=== PATIENT | female | born 1990 | race Caucasian/White ===

== ENCOUNTER 2017-12-27 18:13 | Emergency (ER) | payer OTHER ==
[~2017-12-27] VITALS: Ht 162.6 cm; Wt 67.0 kg
[2017-12-27 18:18] VITALS: TEMP 36.5; Ht 162.6 cm; Wt 67.0 kg
[2017-12-27] MEDS ORDERED: DEXAMETHASONE **PF** INJ 10 MG/ML VIAL IM STA (18:50)
--- NOTE | 2017-12-27 19:36 | DIAGNOSTIC IMAGING REPORT ---
L-SPINE MIN 4 VIEWS ROUTINE HISTORY: Pain low back pain COMPARISON: 10/29/2013 FINDINGS: There is no fracture. No subluxation. Disc spaces are preserved. IMPRESSION: No fracture or subluxation within the lumbar spine. Normal study The above report was generated using voice recognition software. It may contain grammatical, syntax or spelling errors. Electronically signed by: Alejandro Trejo M.D. 12/27/2017 7:35 PM Dictated Date/Time: 12/27/2017 7:35 PM
--- NOTE | 2017-12-27 19:42 | EMERGENCY ROOM VISIT NOTE ---
ED Visit Note First contact with patient: 18:30 CHIEF COMPLAINT: Low back pain HISTORY OF PRESENT ILLNESS: This 27-year-old female patient presents to the emergency department, ambulatory, complaining of pain in the low back which began approximately 3 days ago. Patient states she was lifting heavy boxes, and later that evening began experiencing severe back pain. She states she is having difficulty sitting down, and is most comfortable while leaning over. She is having difficulty walking due to the pain. She did see her PCP today and was given 30 mg Toradol IM and had a negative urinalysis performed. She did have blood in her urine, however states this is the first day of her menstrual cycle. She was sent here by her PCP due to no response to Toradol for possible imaging and further workup. The pain was gradual in onset, is now constant and worse with movement. The patient notes the pain as sharp and a 7/ 10. The patient has taken ibuprofen without relief of the pain. The patient denies any loss of control of their bowel or bladder functions. There has been no leg numbness or weakness, and no change in sensation. No nausea or vomiting or abdominal pain. No chest pain or shortness of breath. The patient has not had prior back injuries. No dysuria or increased urinary frequency. REVIEW OF SYSTEMS: A 10 system review of systems was performed with positives and pertinent negatives listed in the history of present illness. All other systems were reviewed and are negative. ALLERGIES: Citalopram, pineapple MEDICATIONS: None PMH: None SOCIAL HISTORY: The patient lives locally with family. She denies drug, alcohol use. She admits to smoking cigarettes. PHYSICAL EXAM: VITALS: Vitals are noted on the nurse's note and reviewed by myself. Vital signs stable. GENERAL: This is a 27-year-old white female, in no acute distress, nondiaphoretic, well-developed well-nourished. SKIN: The skin was without rashes, erythema, edema, or bruising. Capillary refill less than 2 seconds. NECK: Supple without nuchal rigidity. No cervical spine tenderness. No paraspinous muscle tenderness. HEART: Regular rate and rhythm without murmurs gallops or rubs. LUNGS: Clear to auscultation bilaterally without wheezes, rales or rhonchi. ABDOMEN: Positive bowel sounds x 4. Normal tympanic percussion. Soft, nontender, without masses or organomegaly. Pa sign negative. MUSCULOSKELETAL: No muscle atrophy, erythema, or edema noted of the back. There is mild tenderness over the lumbar spinous processes. There is severe tenderness over the paraspinous muscles, L>R. There is no tenderness over the thoracic spine or paraspinous muscles. There are no muscle spasms present. The patient is slow to move around with maximum tenderness with lying from a standing position. Positive straight leg raise test. NEURO: Patient was alert and oriented to person place and time. Normal sensation to light and sharp touch. Deep tendon reflexes 2+ in the lower extremities. Dorsalis pedis pulse 2+ bilaterally. Strength 5/5 and equal in the bilateral lower extremities. RADIOLOGY: L-SPINE MIN 4 VIEWS ROUTINE HISTORY: Pain low back pain COMPARISON: 10/29/2013 FINDINGS: There is no fracture. No subluxation. Disc spaces are preserved. IMPRESSION: No fracture or subluxation within the lumbar spine. Normal study The above report was generated using voice recognition software. It may contain grammatical, syntax or spelling errors. Electronically signed by: Alejandro Trejo M.D. 12/27/2017 7:35 PM Dictated Date/Time: 12/27/2017 7:35 PM EMERGENCY DEPARTMENT COURSE: The patient was seen and evaluated as above. She was given 10 mg Decadron IM. Medical records from the PCPs office were reviewed and showed a negative urinalysis area the patient has been given 30 mg Toradol prior to arrival. The patient did wait approximately 2 hours after leaving the primary care provider to come to the emergency department. X-ray of the lumbar spine was performed and reviewed by myself and radiologist as above. The patient was reassessed and I discussed the findings of the testing with the patient at bedside. She is now resting more comfortably in bed, and states her pain has slightly improved. I did discuss options for pain management, and recommended steroids and muscle relaxers. The patient was agreeable. I did offer narcotic medication, and the patient declines at this time. She was encouraged to follow-up closely with her PCP. She was given a home pack for Flexeril. Prescriptions for Flexeril and Medrol Dosepak were sent. Discharge instructions reviewed, the patient was discharged home in good condition. I attest that I have personally reviewed the patient's current medication list. Patient was found to have normal blood pressure on screening and does not require follow-up. Etiologies such as lumbago, sciatica, cauda equina, epidural abscess, osteomyelitis, fracture, aortic disease, metastatic disease, infection, renal colic, gastrointestinal, as well as others were entertained. DIAGNOSIS: Lumbar strain with radiculopathy The chart was completed utilizing [employer] Speech voice recognition software. Grammatical errors, random word insertions, pronoun errors, and incomplete sentences are an occasional consequence of this system due to software limitations, ambient noise, and hardware issues. Any formal questions or concerns about the content, text, or information contained within the body of this dictation should be directly addressed to the provider for clarification. Problem List Medical Problems: (1) Anorexia nervosa Status: Chronic (2) Anxiety disorder Status: Chronic (3) Bulimia nervosa Status: Chronic (4) mood disorder NOS Status: Resolved (5) Pneumomediastinum Status: Chronic (6) S/P lumbar puncture Status: Resolved Current/Historical Medications Scheduled Methylprednisolone (Medrol Dosepak), 0 PO DAILY Scheduled PRN Cyclobenzaprine Hcl (Flexeril), 5-10 MG PO TID PRN for Muscle Spasms Ibuprofen (Advil), 400 MG PO Q6 PRN for Pain Allergies Coded Allergies: Pineapple (Verified Allergy, Unknown, SWELLING OF THROAT,HIVES, 05/29/16) Citalopram (Verified Adverse Reaction, Unknown, Mental Issues., 05/29/16) Reported by PT/[facility] record. Vital Signs Date Time Temp Pulse Resp B/P (MAP) Pulse Ox O2 Delivery O2 Flow Rate FiO2 12/27/17 19:58 74 18 122/71 97 12/27/17 18:18 36.5 65 20 128/70 96 Room Air Medications Administered Medications (Trade) Dose Ordered Sig/Lily Route Start Time Stop Time Status Last Admin Dose Admin Dexamethasone Sodium Phosphate (Dexamethasone Inj Pf) 10 mg NOW STAT IM 12/27/17 18:50 12/27/17 18:51 DC 12/27/17 18:55 10 MG Cyclobenzaprine HCl (FLEXERIL 10MG Home Pack) 1 homepack UD STAT PO 12/27/17 19:49 12/27/17 19:50 DC 12/27/17 19:56 1 HOMEPACK Departure Information Impression Primary Impression: Strain of lumbar region Additional Impression: Lumbar radicular pain Dispostion Home / Self-Care Condition GOOD Prescriptions Cyclobenzaprine Hcl (FLEXERIL) 5 Mg Tab 5-10 MG PO TID Y for Muscle Spasms, #15 TAB PRN Prov: Eve Sky PA-C 12/27/17 Methylprednisolone (MEDROL DOSEPAK) 4 Mg Jose 0 PO DAILY, #1 PKT Prov: Eve Sky PA-C 12/27/17 Referrals aMddi Engel CRNP (PCP) Patient Instructions ED Low Back Pain Injury, My [facility] Additional Instructions You have been treated in the Emergency Department for Back Pain. You have been prescribed Flexeril (cyclobenzaprine) 1-2 tabs orally, three times per day. Do NOT exceed 30 mg (6 tabs) per day. Take your first dose at bedtime as it can make you drowsy. Always take all medications as prescribed. You have been prescribed a Medrol Dosepak. This is a steroid which will help decrease your inflammation, redness, and itch. Take the medicine as prescribed. Take the ENTIRE 6 day course of the steroids. No NSAIDs (ibuprofen, Advil, Motrin, naproxen, Aleve) while taking steroids. For pain control, you can use the following [id number] medicines (if >12 yo): Ibuprofen(Motrin, Advil) may be used for fever or pain. Use 600mg every six hours as needed. Take with food. Avoid using more than 2400mg in a 24 hour period. Do not use 2400mg per day for more than three consecutive days without physician direction. Prolonged inappropriate use can lead to stomach upset or ulcers. No NSAIDs while taking steroids. (AND/OR) Acetaminophen(Tylenol) may be used for fever or pain. Use 1000mg every six hours as needed. Avoid using more than 3000mg in a 24 hour period. If this is an acute injury, ice can be applied to the area of pain for the first 3 days to help decrease pain and inflammation. After the first 3 days, a heating pad can be used over the area for continued soothing relief. You should schedule a follow-up appointment in 2-3 days with your Primary Care Provider for further evaluation and treatment of your back pain. Return to the Emergency Department if your current symptoms worsen despite treatment course outlined above, or if you develop any of the following symptoms : intractable pain despite aforementioned treatment course, loss of control of your bowel or bladder, numbness or tingling in your groin, or development of a fever. Problem Qualifiers Primary Impression: Strain of lumbar region Encounter type: initial encounter Qualified Codes: S39.012A - Strain of muscle, fascia and tendon of lower back, initial encounter
[2017-12-27] MEDS ORDERED: IBUP-1050 PO (19:45)
[2017-12-27] MEDS ORDERED: FLEXERIL HOME PACK 10 MG VIAL PO STA (19:49)
[2017-12-27] MEDS ORDERED: METH4PAK PO (19:51)
[2017-12-27] MEDS ORDERED: CYCL5TAB PO (19:51)
[2017-12-27 19:58] VITALS: BP 122/71; PULSE 74; O2SAT 97
== END 2017-12-27 19:59 | disposition home or self-care (01) ==
LOC: C.EDB 18:14 → C.EDD 19:59
DX: S39.012A Strain of muscle, fascia and tendon of lower back, initial encounter (principal); M54.16 Radiculopathy, lumbar region; X50.9XXA Other and unspecified overexertion or strenuous movements or postures, initial encounter; Z91.018 Allergy to other foods; Z88.8 Allergy status to other drugs, medicaments and biological substances

== ENCOUNTER 2021-12-17 07:20 | Inpatient (IN) ==
--- NOTE | 2021-12-17 07:27 | History & Physical Report ---
Date of Service December 17, 2021 Assessment & Plan (1) 39 weeks gestation of : Plan: Admit, routine labs, 3rd trimester labs incl HIV/RPR/Hep B Misoprostol 25mcg SL q4 hrs Epidural if patient requests Anticipate (2) Velamentous insertion of umbilical cord: Plan: Continues monitoring (3) History of depression: (4) Obesity affecting : Admission and Anticipated Discharge Date Admission Date: December 17, 2021 History of Present Illness Chief Complaint: IOL Primary Care Provider: Maddi Engel Patient is a 31-year-old -0-1-0 at 39 weeks and 1 day dated by 6-week ultrasound who presents to labor and delivery for induction of labor at 39 weeks for velamentous cord insertion diagnosis on ultrasound. Upon presentation she denies contractions, leaking of fluid or vaginal bleeding. Notes good movement. Denies headache, blurry vision, right upper quadrant or epigastric pain. Otherwise feeling well no other complaints Allergies Allergy/AdvReac Type Severity Reaction Status Date / Time pineapple Allergy Severe SWELLING Verified 11/25/21 11:53 OF THROAT,HIVES citalopram AdvReac Intermediate Mental Verified 11/25/21 11:53 Issues. Home Medications Medication Instructions Recorded Confirmed Type vit no.95-ferrous 1 tab PO DAILY 08/22/21 11/25/21 History fumarate 28 mg-folic acid 800 mcg tablet () ferrous sulfate 325 mg (65 mg 325 mg PO DAILY #30 tab 11/10/21 11/25/21 Rx iron) tablet nifedipine 30 mg tablet,extended 30 mg PO BID #14 tab 11/25/21 Rx release 24 hr (Procardia XL) Patient History Medical History Abdominal pain Anxiety disorder Back strain Bronchitis Chemosis of conjunctiva Chest pain Depression First trimester Hallucinations Incomplete miscarriage Lumbar back sprain Lumbar radicular pain Lumbar strain Mood disorder Palpitations Pelvic pain Pharyngitis PTSD (post-traumatic stress disorder) Shortness of breath Shortness of breath Spasm of back muscles Spinal headache Spinal headache Strain of lumbar region UTI (urinary tract infection) Vaginal bleeding Surgical History H/O dilation and curettage Family History Other No pertinent family history in first degree relatives Social History Smoking Status: Never smoker Hx Alcohol Use: No Hx Substance Use: No Preferred Language: Monegasque Communication Ability: Effective In Home Sales Consultant Required: No Beliefs That Will Affect Care: None marital status: Single Current Living Situation: Significant Other Feels Safe at Home: Yes Assistive Devices: None 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
[2021-12-17] MEDS: LACTATED RINGER'S 1,000 ML IV PRN ×3 (08:06→21:12)
[2021-12-17] MEDS ORDERED: OXYTOCIN 30 UNITS/500 ML BAG IV PRN ×2 (08:48→15:51)
[2021-12-17] MEDS: miSOPROStoL 25 MCG TAB SL SCH ×4 (09:07→21:21)
[2021-12-17 09:53] LABS: Hematocrit (blood only) 35.3 % (37-47); Hemoglobin 11.8 g/dL (12.0-16.0); Mean Corpuscular Hemoglobin 30.5 pg (25-34); Mean Corpuscular Hgb Conc 33.4 g/dL (32-36); Mean Corpuscular Volume 91.2 fL (80-100); Mean Platelet Volume 10.6 fL (7.4-10.4); Platelet Count 186 K/uL (130-400); RDW Coefficient of Variation 14.2 % (11.5-14.5); RDW Standard Deviation 47.2 fL (36.4-46.3); Red Blood Count 3.87 M/uL (4.2-5.4); White Blood Count 8.46 K/uL (4.8-10.8)
--- NOTE | 2021-12-17 15:53 | Labor Progress Brief Note ---
Date of Service December 17, 2021 Subjective Doing well, starting to feel contraction. No complaints Assessment & Plan (1) 39 weeks gestation of : Plan: Will start pit at this time Epidural if patient requests AROM after Anticipate (2) Velamentous insertion of umbilical cord: Plan: Continues monitoring (3) History of depression: (4) Obesity affecting : Admission and Anticipated Discharge Date Admission Date: December 17, 2021 Physical Exam Physical Exam: FHT: baseline 125, mod variability, +accels, no decles, cat I [place]: contrions q2-3 min Cx: 2/70/-2 Results & Data ([facility]) Vital Signs (Past 12 Hours) Vital Signs Temp Pulse Resp BP 12/17/21 09:38 36.6 C 93 H 22 117/72 12/17/21 07:35 36.6 C 93 H 117/72
[2021-12-17] MEDS ORDERED: BUTORPHANOL TARTRATE 1 MG/ML VIAL IV PRN (16:44)
[2021-12-17] MEDS ORDERED: ONDANSETRON 2 MG OD TAB PO PRN (18:14)
[2021-12-17] MEDS ORDERED: ePHEDrine sulfate 50 MG/ML AMP ONE (19:18)
[2021-12-17] MEDS ORDERED: SODIUM CHLORIDE 0.9% INJ 10 ML VIAL ONE (19:19)
[2021-12-17] MEDS ORDERED: BUPIVACAINE 0.25% 30 ML VIAL ONE (19:19)
[2021-12-17] MEDS ORDERED: fentaNYL citrate 100 MCG/2 ML VIAL ONE (19:19)
[2021-12-17] MEDS ORDERED: fentaNYL 2MCG/ML ROPIVACAINE 1.25MG/ML 100 ML BAG EPI ONE (19:20)
--- NOTE | 2021-12-17 20:22 | Anesthesiology Consultation ---
Date of Service December 17, 2021 Assessment & Plan Chart Review Chart Review: Acceptable Risk for Labor Epidural Consults Requested none History Height/Weight Height: 5 ft 5 in Weight: 95.254 kg Allergies Allergy/AdvReac Type Severity Reaction Status Date / Time pineapple Allergy Severe SWELLING Verified 11/25/21 11:53 OF THROAT,HIVES citalopram AdvReac Intermediate Mental Verified 11/25/21 11:53 Issues. Medications Home Medications Medication Instructions Recorded Confirmed Last Taken vit no.95-ferrous 1 tab PO DAILY 08/22/21 12/17/21 12/16/21 08:00 fumarate 28 mg-folic acid 800 mcg tablet () ferrous sulfate 325 mg (65 mg 325 mg PO DAILY #30 tab 11/10/21 12/17/21 12/16/21 08:00 iron) tablet 1 oxycodone-acetaminophen 5 mg-325 1 tab PO Q4H PRN 12/17/21 12/17/21 12/16/21 20:00 mg tablet Active Medications Generic Name Dose Route Start Last Admin Trade Name Freq PRN Reason Stop Dose Admin Butorphanol Tartrate 1 mg 12/17/21 16:44 12/17/21 16:57 Butorphanol Tartrate 1 Mg/Ml Vial IV 01/16/22 16:43 1 mg Q4H PRN Administration Pain Lactated Ringer's 1,000 mls @ 125 mls/hr 12/17/21 08:48 12/17/21 20:15 Lr IV 12/19/21 08:47 999 mls/hr .Q8H PRN Infusion L&D Protocol Protocol Oxytocin 30 units in 500 mls @ 10 mls/hr 12/17/21 15:51 12/17/21 18:45 Pitocin IV 12/19/21 15:50 0.6 units/hr .Q24H PRN 10 mls/hr Labor Induction/Augmentation Titration Protocol 0.6 UNITS/HR Misoprostol 25 mcg 12/17/21 09:00 12/17/21 18:37 Misoprostol 25 Mcg Tab SL 01/16/22 08:59 Not Given Q4H [place] Ondansetron HCl 2 mg 12/17/21 18:14 12/17/21 18:45 Ondansetron 2 Mg Od Tab PO 01/16/22 18:13 2 mg Q4H PRN Administration Nausea And Vomiting Past Medical History Medical History Abdominal pain Anxiety disorder Back strain Bronchitis Chemosis of conjunctiva Chest pain Depression First trimester Hallucinations Incomplete miscarriage Lumbar back sprain Lumbar radicular pain Lumbar strain Mood disorder Palpitations Pelvic pain Pharyngitis PTSD (post-traumatic stress disorder) Shortness of breath Shortness of breath Spasm of back muscles Spinal headache Spinal headache Strain of lumbar region UTI (urinary tract infection) Vaginal bleeding Past Family History Family History Other No pertinent family history in first degree relatives Past Surgical History Surgical History H/O dilation and curettage Social History Smoking Status: Never smoker Hx Alcohol Use: No Hx Substance Use: No substance use type: does not use Physical Exam Vital Signs Last Vital Signs Temp 36.5 C 12/17/21 19:01 Pulse 74 12/17/21 20:19 Resp 18 12/17/21 19:01 BP 102/66 12/17/21 20:19 Pulse Ox 99 12/17/21 20:19 Testing Laboratory Results 12/17/21 09:15
[2021-12-17] MEDS ORDERED: NALBUPHINE HCL INJ 10 MG/ML AMP IV PRN (20:28)
[2021-12-17] MEDS ORDERED: NALOXONE HCL 1 MG in SODIUM CHLORIDE 0.9% 1000ML 1,000 ML IV PRN (20:28)
[2021-12-17] MEDS ORDERED: fentaNYL 2MCG/ML ROPIVACAINE 1.25MG/ML 100 ML BAG EPI PRN (20:28)
[2021-12-17] MEDS ORDERED: ePHEDrine sulfate 50 MG/ML AMP IV PRN (20:28)
[2021-12-17] MEDS ORDERED: NALOXONE HCL 0.4 MG/1 ML VIAL/CARP IV PRN (20:28)
[2021-12-17] MEDS ORDERED: diphenhydrAMINE 50 MG/ML VIAL IV PRN (20:28)
--- NOTE | 2021-12-17 21:03 | Labor Progress Brief Note ---
Date of Service December 17, 2021 Subjective Patient comfortable in bed on epidural at this time Assessment & Plan (1) 39 weeks gestation of : Plan: Continue oxytocin for augmentation Anticipate (2) Velamentous insertion of umbilical cord: Plan: Continues monitoring (3) History of depression: (4) Obesity affecting : Admission and Anticipated Discharge Date Admission Date: December 17, 2021 Physical Exam Physical Exam: FHT: Baseline 130, moderate variability, positive accelerations no decelerations, category 1 tracing Tocometer: Contractions every 1 to 2 minutes oxytocin at 10 milliunits/h Cervix: 3/60/-2 AROM performed with moderate amount of clear fluid, IUPC was placed, no cord, no complications Results & Data ([facility]) Vital Signs (Past 12 Hours) Vital Signs Temp Pulse Resp BP Pulse Ox 12/17/21 20:59 81 98 12/17/21 20:54 72 100 12/17/21 20:49 75 99 12/17/21 20:47 66 107/58 L 12/17/21 20:44 77 99 12/17/21 20:39 73 97 12/17/21 20:34 71 98 12/17/21 20:31 69 108/58 L 12/17/21 20:30 18 12/17/21 20:29 73 113/62 99 12/17/21 20:27 73 112/56 L 12/17/21 20:25 82 107/55 L 12/17/21 20:24 71 96 12/17/21 20:23 71 108/62 12/17/21 20:21 76 101/73 12/17/21 20:19 74 102/66 99 12/17/21 20:17 76 99/63 L 12/17/21 20:15 77 91/66 L 12/17/21 20:14 73 98 12/17/21 20:13 76 91/58 L 12/17/21 20:12 71 109/55 L 12/17/21 20:09 83 98 12/17/21 20:07 80 130/78 12/17/21 20:05 89 139/85 12/17/21 20:04 87 98 12/17/21 19:59 78 129/75 99 12/17/21 19:56 18 12/17/21 19:54 78 99 12/17/21 19:49 71 99 12/17/21 19:44 74 99 12/17/21 19:39 71 98 12/17/21 19:34 84 98 12/17/21 19:29 91 H 98 12/17/21 19:01 36.5 C 18 12/17/21 18:59 36.5 C 77 18 112/70 12/17/21 09:38 36.6 C 93 H 22 117/72
[2021-12-18] MEDS: miSOPROStoL 25 MCG TAB SL SCH (01:53)
[2021-12-18] MEDS ORDERED: OXYTOCIN 30 UNITS/500 ML BAG IV PRN (03:52)
[2021-12-18] MEDS ORDERED: ACETAMINOPHEN 325 MG TAB PO PRN (03:52)
[2021-12-18] MEDS ORDERED: DIPHTHERIA/TETANUS/PERTUSSIS 0.5 ML SYR/VIAL IM ONE (03:52)
[2021-12-18] MEDS ORDERED: HYDROCORTISONE ACETATE 25 MG SUPP PR PRN (03:52)
[2021-12-18] MEDS ORDERED: BENZOCAINE 20% AER SPR 82.5 GM CAN EXT PRN (03:52)
--- NOTE | 2021-12-18 03:54 | Delivery Summary ---
Vaginal Delivery Summary Date of Service December 18, 2021 Vaginal Delivery Summary Delivery Note History synopsis: Patient is a 31-year-old G [id number] who presented at 39 weeks and 1 day for induction of labor for velamentous cord insertion noted on previous ultrasound. On admission she was 1.5 cm dilated, received 1 dose of misoprostol 25 mcg sublingually. Rosales was to repeat in 4 hours but she was fabian too much at that time. She was rechecked and found to be 2 cm dilated. She was started on oxytocin for augmentation and titrated up appropriately. She received an epidural for pain control and artificial rupture of membranes was done when she was 3 cm dilated, and IUPC was placed. She progressed throughout the evening from 8 cm to complete. She pushed with nursing for 1 hour prior to me being called for delivery. She was noted to have a category 1 tracing throughout labor Delivery Summary: Patient was placed in the dorsal lithotomy position. She was prepped and draped in the usual sterile fashion. Upon maternal pushing the head was delivered atraumatically followed by the anterior shoulders, posterior shoulders then the remainder of the infants body. The infants mouth and nose were bulb suction below the level of the perineum. A male was delivered at 0338, weight pending with APGARS of 8 at 1 minute and 9 at 5 minutes. The umbilical cord was clamped times two and cut. The infant was handed off to the awaitingnursing staff. Cord blood was obtained. The placenta delivered intact with three vessel cord at 0342. No cord avulsion noted. Placenta was sent to pathology. Thirty units of Pitocin were added to the IV fluid and allowed to run freely. Uterine massage was performed until uterus was deemed firm. Upon inspection of the perineum, vagina and cervix were intact. Second degree laceration was noted which was repaired with 3-0 vicryl in the usual fashion. Also noted extremely small right labial laceration towards 11:00, was hemostatic and therefore not repaired. Upon re-inspection the patient was hemostatic. Uterus again massaged and found to be firm. Needle and sponge counts were correct. Patient was stable and allowed to recover in L&D room. Infant was stable and remained in room with mother in the Family Care Unit.
[2021-12-18] MEDS: DOCUSATE SODIUM 100 MG CAP PO SCH ×2 (08:30→21:00)
[2021-12-18] MEDS: PRENATAL VITAMIN 1 TAB PO SCH (08:30)
[2021-12-18] MEDS: IBUPROFEN 600 MG TAB PO PRN ×3 (08:30→22:40)
[2021-12-18] MEDS ORDERED: bisacodyL 10 MG SUPP PR ONE (10:54)
[2021-12-18 12:25] LABS: HBSAG NON-REACTIVE (NON-REACTIVE)
[2021-12-18] MEDS: ACETAMINOPHEN W/CODEINE #3 1 TAB PO PRN ×2 (12:28→22:40)
[2021-12-19 06:27] LABS: Hematocrit (blood only) 29.5 % (37-47); Hemoglobin 9.5 g/dL (12.0-16.0); Mean Corpuscular Hemoglobin 30.2 pg (25-34); Mean Corpuscular Hgb Conc 32.2 g/dL (32-36); Mean Corpuscular Volume 93.7 fL (80-100); Mean Platelet Volume 10.5 fL (7.4-10.4); Platelet Count 193 K/uL (130-400); RDW Coefficient of Variation 14.5 % (11.5-14.5); RDW Standard Deviation 49.6 fL (36.4-46.3); Red Blood Count 3.15 M/uL (4.2-5.4); White Blood Count 10.71 K/uL (4.8-10.8)
[2021-12-19] MEDS: PRENATAL VITAMIN 1 TAB PO SCH (07:36)
[2021-12-19] MEDS: DOCUSATE SODIUM 100 MG CAP PO SCH ×2 (07:36→21:11)
--- NOTE | 2021-12-19 09:41 | Obstetrical Progress Note ---
Date of Service December 19, 2021 Subjective Ambulation: ambulating normally Voiding: no voiding problems Passing Gas:: Yes Diet Tolerance:: regular diet Feeding Type:: breast feeding Current Pain Level(1-10): 0 doing well. plans for d/c in AM Physical Exam Constitutional WD/WN, vitals as above abdomen soft and non-tender. fundus firm Skin no rashes, warm and dry no edema. neg Lavonne's Results & Data ([facility]) Vital Signs (Past 12 Hours) Vital Signs Temp Pulse Resp BP Pulse Ox 12/19/21 07:35 36.7 C 75 18 94/61 L 12/19/21 00:00 37.2 C 75 20 112/71 99 Laboratory Results Laboratory Results - last 24 hr 12/17/21 12/17/21 12/19/21 09:15 09:15 06:00 WBC 10.71 RBC 3.15 L Hgb 9.5 L Hct 29.5 L MCV 93.7 MCH 30.2 MCHC 32.2 RDW Std Deviation 49.6 H RDW Coeff of [place] 14.5 Plt Count 193 MPV 10.5 H Hep Bs Antigen NON-REACTIVE Hep Bs Ag Confirmation TNP HIV (1&2) Ag & Ab Conf NON-REACTIVE
[2021-12-19] MEDS ORDERED: DOXAZOSIN MESYLATE 1 MG TAB PO STA (14:35)
[2021-12-19] MEDS: IBUPROFEN 600 MG TAB PO PRN ×3 (17:44→23:34)
[2021-12-19] MEDS ORDERED: LORazepam 0.5 MG TAB PO STA (18:07)
[2021-12-19] MEDS ORDERED: bisacodyL 5 MG TABEC PO SCH (20:00)
[2021-12-19] MEDS: miSOPROStoL 25 MCG TAB SL SCH (21:40)
[2021-12-20] MEDS ORDERED: bisacodyL 10 MG SUPP PR PRN (04:00)
[2021-12-20] MEDS: IBUPROFEN 600 MG TAB PO PRN (05:36)
[2021-12-20 06:54] LABS: Hematocrit (blood only) 29.3 % (37-47); Hemoglobin 9.7 g/dL (12.0-16.0)
[2021-12-20] MEDS: PRENATAL VITAMIN 1 TAB PO SCH (08:44)
[2021-12-20] MEDS: DOCUSATE SODIUM 100 MG CAP PO SCH (08:44)
[2021-12-20] MEDS ORDERED: TAMSULOSIN HCL 0.4 MG CAP PO ONE (10:23)
--- NOTE | 2021-12-20 10:23 | Obstetrical Progress Note ---
Date of Service December 20, 2021 Assessment & Plan (1) Normal course: Pt doing well has urinary retention Patricio removed will disch if pt is able to void spontaneously (2) Urinary retention: Results & Data ([facility]) Vital Signs (Past 12 Hours) Vital Signs Temp Pulse Resp BP Pulse Ox 12/20/21 07:50 36.5 C 79 18 106/68 12/19/21 23:27 36.7 C 76 16 104/66 97
--- NOTE | 2021-12-20 11:59 | Progress Note ---
Date of Service December 20, 2021 Assessment & Plan (1) Urinary retention: Plan: pt voided spontaneously will d/c home with instructions Admission and Anticipated Discharge Date Admission Date: December 17, 2021 Results & Data ([facility]) Vital Signs (Past 12 Hours) Vital Signs Temp Pulse Resp BP 12/20/21 07:50 36.5 C 79 18 106/68
== END 2021-12-20 13:30 | disposition home or self-care (01) | DRG 807 ==
LOC: 4S1 07:20 → 4E2 12-18 06:30